=== PATIENT | male | born 1960 | race Caucasian/White ===

== ENCOUNTER 2016-06-17 10:06 | Emergency (ER) | payer MEDICARE ==
[~2016-06-17] VITALS: Ht 177.8 cm; Wt 85.6 kg
[2016-06-17] MEDS ORDERED: SODIUM CHLORIDE 0.9% 1,000 ML IV ONE (11:07)
[2016-06-17] MEDS ORDERED: LORazepam 2 MG/ML, 1ML ONE (11:12)
[2016-06-17] MEDS ORDERED: ONDANSETRON 2MG/ML, 2ML ONE (11:12)
[2016-06-17 11:23] LABS: HEMOGLOBIN 14.6 g/dL (13.7-18.0)
[2016-06-17] MEDS ORDERED: LORazepam 2 MG/ML, 1ML IVPush ONE (11:30)
[2016-06-17] MEDS ORDERED: ONDANSETRON 2MG/ML, 2ML IVPush ONE (11:30)
[2016-06-17 11:37] LABS: ASPARTATE AMINO TRANSFERASE 31 U/L (15-37); BLOOD UREA NITROGEN 22 mg/dL (7-18)
[2016-06-17 11:39] LABS: DAU SCREEN DISCLAIMER
[2016-06-17 11:42] LABS: ACETAMINOPHEN < 2 mcg/mL (10-30)
[2016-06-17] MEDS ORDERED: MORPHINE SULFATE 4 MG/ML, 1ML IVPush PRN (13:30)
[2016-06-17] MEDS ORDERED: MORPHINE SULFATE 4 MG/ML, 1ML ONE (13:37)
[2016-06-17 13:43] VITALS: BP 127/86
== END 2016-06-17 14:37 | disposition home or self-care (01) ==
LOC: ED 14:31
DX: F15.14 Other stimulant abuse with stimulant-induced mood disorder (principal); F19.94 Other psychoactive substance use, unspecified with psychoactive substance-induced mood disorder; F41.9 Anxiety disorder, unspecified; R06.4 Hyperventilation
CPT/HCPCS: 36415; 71010; 80053; 80307; 80329; 81003; 85025; 93005; 96361; 96374; 96375; 99285; J2060; J2405; J7030; G0480